=== PATIENT | female | born 1960 | race Caucasian/White ===

== ENCOUNTER 2019-01-03 13:19 | Emergency (ER) | payer OTHER ==
[~2019-01-03] VITALS: Ht 144.8 cm; Wt 67.0 kg
[2019-01-03 13:32] VITALS: BP 207/95
== END 2019-01-03 15:31 | disposition home or self-care (01) ==
LOC: ER 13:20
DX: S63.591A Other specified sprain of right wrist, initial encounter (principal); G43.909 Migraine, unspecified, not intractable, without status migrainosus; Z88.6 Allergy status to analgesic agent; Z88.5 Allergy status to narcotic agent; Y08.89XA Assault by other specified means, initial encounter; Y93.89 Activity, other specified; Y92.89 Other specified places as the place of occurrence of the external cause; Y99.8 Other external cause status
CPT/HCPCS: 73110; 99284

== ENCOUNTER 2020-01-22 16:37 | Emergency (ER) | payer OTHER ==
[~2020-01-22] VITALS: Ht 144.8 cm; Wt 64.5 kg
[2020-01-22 16:47] VITALS: BP 143/64
[2020-01-22] MEDS ORDERED: proparacaine 0.5% ophthalmic drops 15ml EACHEYE ONE (17:25)
[2020-01-22] MEDS ORDERED: CIPR2.5D21 EACHEYE (17:50)
== END 2020-01-22 18:09 | disposition home or self-care (01) ==
LOC: ER 16:38
DX: S05.02XA Injury of conjunctiva and corneal abrasion without foreign body, left eye, initial encounter (principal); G43.909 Migraine, unspecified, not intractable, without status migrainosus; I10 Essential (primary) hypertension; F17.200 Nicotine dependence, unspecified, uncomplicated; Z88.6 Allergy status to analgesic agent; Z88.8 Allergy status to other drugs, medicaments and biological substances; X58.XXXA Exposure to other specified factors, initial encounter; Y93.89 Activity, other specified; Y92.89 Other specified places as the place of occurrence of the external cause; Y99.8 Other external cause status
CPT/HCPCS: 99283

== ENCOUNTER 2020-10-26 00:55 | Emergency (ER) | payer OTHER ==
[~2020-10-26] VITALS: Ht 144.8 cm; Wt 59.1 kg
[2020-10-26 00:57] VITALS: BP 161/66
[2020-10-26] MEDS ORDERED: LIDOcaine Viscous 15ml cup MM PRN (04:50)
[2020-10-26] MEDS ORDERED: CLIN-142 PO (06:05)
[2020-10-26] MEDS ORDERED: clindamycin 150mg capsule PO ONE (06:05)
== END 2020-10-26 06:51 | disposition home or self-care (01) ==
LOC: ER 00:55
DX: K04.7 Periapical abscess without sinus (principal); G43.909 Migraine, unspecified, not intractable, without status migrainosus; I10 Essential (primary) hypertension; F17.210 Nicotine dependence, cigarettes, uncomplicated; Z88.6 Allergy status to analgesic agent; Z88.5 Allergy status to narcotic agent; Z79.899 Other long term (current) drug therapy
CPT/HCPCS: 41800; 99284